=== PATIENT | male | born 1985 | race Caucasian/White ===

== ENCOUNTER 2020-10-26 01:21 | Inpatient (IN) ==
[2020-10-26] MEDS ORDERED: Mag Hydrox/Al Hydrox/Simeth 30 ML UDC PO PRN (01:35)
[2020-10-26] MEDS ORDERED: *HR* LORazepam 2 MG/ML VIAL IM PRN (01:35)
[2020-10-26] MEDS ORDERED: Haloperidol Lactate 5 MG/ML VIAL IM PRN (01:35)
[2020-10-26] MEDS ORDERED: MOM Conc 10 ML UD.LIQ PO PRN (01:35)
[2020-10-26] MEDS ORDERED: *HR* LORazepam 1 MG TABLET PO PRN (01:35)
[2020-10-26] MEDS ORDERED: Ibuprofen 400 MG TABLET PO PRN (01:35)
[2020-10-26] MEDS ORDERED: hydrOXYzine pamoate 25 MG CAPSULE PO PRN (01:35)
[2020-10-26] MEDS ORDERED: QUEtiapine Fumarate 25 MG TABLET PO PRN (01:35)
[2020-10-26] MEDS ORDERED: haloperidoL 5 MG TABLET PO PRN (01:35)
[2020-10-26] MEDS ORDERED: OLANZapine 10 MG TAB.RAPDIS PO STA (01:40)
[2020-10-26] MEDS: Nicotine 21 MG PATCH.TD24 TD SCH ×2 (02:20→09:54)
[2020-10-26] MEDS: OLANZapine 5 MG TAB.RAPDIS PO SCH (17:33)
[2020-10-27] MEDS: Nicotine 21 MG PATCH.TD24 TD SCH (11:34)
[2020-10-27] MEDS: OLANZapine 5 MG TAB.RAPDIS PO SCH (18:29)
[2020-10-28] MEDS: Nicotine 21 MG PATCH.TD24 TD SCH (11:56)
[2020-10-28 12:10] VITALS: BP 132/83
[2020-10-28] MEDS: OLANZapine 5 MG TAB.RAPDIS PO SCH (17:49)
== END 2020-10-28 17:55 | disposition home or self-care (01) | DRG 885 ==
LOC: 1ANU 01:21
PROVIDERS: ADMIT Psychiatry & Neurology Forensic Psychiatry; ATTEND Psychiatry & Neurology Forensic Psychiatry